=== PATIENT | male | born 1975 | race Caucasian/White ===

== ENCOUNTER 2019-05-23 11:56 | Emergency (ER) | payer MEDICARE ==
[~2019-05-23] VITALS: Ht 177.8 cm; Wt 130.0 kg
[2019-05-23 12:59] LABS: URINE BILIRUBIN - DIPSTICK NEGATIVE (NEGATIVE); URINE COLOR YELLOW; URINE GLUCOSE - DIPSTICK NEGATIVE (NEGATIVE); URINE KETONE NEGATIVE (NEGATIVE); URINE LEUK ESTERASE NEGATIVE (NEGATIVE); URINE NITRITE - DIPSTICK NEGATIVE (Negative); URINE PH 7.5 (4.5-8.0); URINE PROTEIN - DIPSTICK NEGATIVE (NEG-TRACE); URINE UROBILINOGEN - DIPSTICK 0.2 E.U./dL (0.2)
[2019-05-23 13:07] LABS: URINE BLOOD DIPSTICK TRACE (NEGATIVE)
[2019-05-23 13:09] LABS: BARBITURATES NEGATIVE (NEGATIVE); COCAINE NEGATIVE (NEGATIVE); METHADONE NEGATIVE (NEGATIVE); OXCYCODONE NEGATIVE (NEGATIVE); TETRAHYDROCANNABIONOL POSITIVE (NEGATIVE); TRICYLIC ANTIDEPRESSANTS NEGATIVE (NEGATIVE)
[2019-05-23 13:32] LABS: HEMATOCRIT 44.6 % (39.0-50.0); HEMOGLOBIN 14.8 g/dl (14.0-18.0); IMMATURE GRANULOCYTES 0.3 % (0.0-5.0); MEAN CELL VOLUME 91.8 fL CALC (80.0-100.0); MEAN CORPUSCULAR HGB 30.5 pG CALC (26.0-32.0); MEAN CORPUSCULAR HGB CONC 33.2 g/L CALC (32.0-36.0); NEUT# 10.35 thou/uL (1.82-7.42); RED BLOOD COUNT 4.86 mill/uL (4.70-6.10); RED CELL DISTRI WIDTH 13.2 % (11.5-15.5)
[2019-05-23 13:35] LABS: ALBUMIN 4.4 g/dL (3.2-5.0); ALKALINE PHOSPHATASE 62 u/l (38-126); ANION GAP 14 (6-22 (CALC)); BILIRUBIN, TOTAL 0.5 mg/dL (0.0-1.4); BUN 11 mg/dL (9-20); BUN/CREATININE RATIO 14 (12-20 (CALC)); CARBON DIOXIDE 28 mmol/l (22-30); CHLORIDE 102 mmol/l (95-108); CREATININE 0.7 mg/dL (0.7-1.3); GFR > 60 ML/MIN (>=60 (CALC)); GFR FOR AFR.AMER. > 60 ML/MIN (>=60 (CALC)); LIPASE 561 u/l (23-300); POTASSIUM 4.7 mmol/l (3.5-5.1); SGOT/AST 22 u/l (17-59); SODIUM 138 mmol/l (137-146); TOTAL PROTEIN 7.2 g/dL (6.3-8.2)
[2019-05-23] MEDS ORDERED: PREVACID30 M1 PO (16:17)
[2019-05-23] MEDS ORDERED: ZOFRAN4 MG/TAB PO (16:17)
[2019-05-23 16:22] VITALS: BP 128/77
== END 2019-05-23 16:33 | disposition home or self-care (01) ==
LOC: ED 11:56
DX: K85.90 Acute pancreatitis without necrosis or infection, unspecified (principal); R10.33 Periumbilical pain; K59.00 Constipation, unspecified; F17.210 Nicotine dependence, cigarettes, uncomplicated
CPT/HCPCS: Q9967

== ENCOUNTER 2021-09-22 16:29 | Emergency (ER) | payer OTHER ==
[~2021-09-22] VITALS: Ht 177.8 cm; Wt 65.0 kg
[~2021-09-22 16:29] MED LIST: PREVACID30 M1 PO; ZOFRAN4 MG/TAB PO
[2021-09-22] MEDS ORDERED: KEFLEX500 MG PO (21:54)
[2021-09-22 22:07] VITALS: BP 128/77
== END 2021-09-22 22:10 | disposition home or self-care (01) | DRG 605 ==
LOC: ED 16:29
PROC: 0HQEXZZ Repair Left Lower Arm Skin, External Approach (ICD-10-PCS; principal; 2021-09-22)
DX: S61.512A Laceration without foreign body of left wrist, initial encounter (principal); F17.200 Nicotine dependence, unspecified, uncomplicated; W27.8XXA Contact with other nonpowered hand tool, initial encounter; Y93.89 Activity, other specified; Y92.89 Other specified places as the place of occurrence of the external cause; Y99.0 Civilian activity done for income or pay

== ENCOUNTER 2022-12-16 18:37 | Emergency (ER) | payer SELFPAY ==
[~2022-12-16] VITALS: Ht 177.8 cm; Wt 52.0 kg
[~2022-12-16 18:37] MED LIST changes: +KEFLEX500 MG PO
[2022-12-16 18:54] VITALS: BP 118/84
[2022-12-16 19:00] VITALS: BP 117/72
[2022-12-16 19:15] VITALS: BP 106/70
[2022-12-16] MEDS ORDERED: KEFLEX500 MG PO (19:25)
[2022-12-16 19:30] VITALS: BP 109/78
[2022-12-16 19:38] VITALS: BP 109/78
== END 2022-12-16 19:38 | disposition home or self-care (01) | DRG 605 ==
LOC: ED 18:37
PROC: 0HQKXZZ Repair Right Lower Leg Skin, External Approach (ICD-10-PCS; principal; 2022-12-16)
DX: S81.011A Laceration without foreign body, right knee, initial encounter (principal); F17.200 Nicotine dependence, unspecified, uncomplicated; W26.8XXA Contact with other sharp object(s), not elsewhere classified, initial encounter; Y93.89 Activity, other specified; Y92.028 Other place in mobile home as the place of occurrence of the external cause; Y99.0 Civilian activity done for income or pay